=== PATIENT | male | born 1985 | race Caucasian/White ===

== ENCOUNTER 2020-02-28 15:27 | Emergency (ER) | payer OTHER ==
[2020-02-28 15:47] VITALS: BP 125/80; PULSE 80
--- NOTE | 2020-02-28 16:44 | EDM.PDOC ---
ED HPI GENERAL MEDICAL PROBLEM - General Chief Complaint: Lower Extremity Injury/Pain Stated Complaint: TWISTED LEFT ANKLE Time Seen by Provider: 02/28/20 15:34 Source of Information: Reports: Patient History Limitations: Reports: No Limitations - History of Present Illness INITIAL COMMENTS - FREE TEXT/NARRATIVE: Patient is a 35-year-old male who presents to the emergency department with complaints of left posterior ankle pain. States he was playing softball was running backwards to catch the ball he felt a strong pop in his ankle and has not been able to bear weight on the extremity since that time. Pain is localized to the posterior aspect of the ankle. He does have some cramping in his calf as well. He denies any previous injuries to this extremity. - Related Data Allergies Allergy/AdvReac Type Severity Reaction Status Date / Time No Known Allergies Allergy Verified 02/28/20 15:44 Home Meds: Home Meds . [No Known Home Meds] 07/02/15 [History] Past Medical History - Past Health History Medical/Surgical History: Denies Medical/Surgical History - Past Surgical History GI Surgical History: Reports: Hernia, Abdominal, Hernia, Inguinal Social & Family History - Family History Family Medical History: Noncontributory - Tobacco Use Smoking Status *Q: Never Smoker - Living Situation & Occupation Living situation: Reports: Occupation: Employed Review of Systems - Review of Systems Review Of Systems: Comprehensive ROS is negative, except as noted in HPI. ED EXAM, GENERAL - Physical Exam Exam: See Below Exam Limited By: No Limitations General Appearance: Alert, WD/WN, No Apparent Distress Respiratory/Chest: No Respiratory Distress, Lungs Clear, Normal Breath Sounds, No Accessory Muscle Use, Chest Non-Tender Cardiovascular: Normal Peripheral Pulses, Regular Rate, Rhythm, No Edema, No Gallop, No JVD, No Murmur, No Rub Course - Vital Signs Last Recorded V/S: Last Vital Signs Temp 97.1 F 02/28/20 15:44 Pulse 80 02/28/20 15:44 Resp 16 02/28/20 15:44 BP 125/80 02/28/20 15:44 Pulse Ox 96 02/28/20 15:44 - Orders/Labs/Meds Orders: Active Orders 24 hr Category Date Time Status Ankle Min 3V Lt [CR] Stat Exams 02/28/20 15:53 Taken Tibia Fibula Lt [CR] Stat Exams 02/28/20 15:53 Taken DME for Discharge [COMM] Routine Oth 02/28/20 18:12 Ordered - Re-Assessments/Exams Free Text/Narrative Re-Assessment/Exam: X-rays of the left ankle and tib-fib are negative for any acute fractures. On exam, the Achilles tendon is nonpalpable on the left side. This corresponds with the area of the patient's tenderness. Called and spoke with the technical agronomist, Miguelito. He will come and do an ultrasound of the Achilles tendon to look for tears. 02/28/20 18:09 Ultrasound of the left lower extremity were suspicious for a partial tear within the left Achilles tendon. Radiologist recommends a nonemergent MRI to confirm this. Patient has been placed in a custom Ortho-Glass short leg splint. He will be provided crutches. Recommend that he follow-up with Dr. Alcala next week. Discharge instructions as documented. Departure - Departure Time of Disposition: 18:10 Disposition: Home, Self-Care 01 Condition: Good Clinical Impression: Rupture of Achilles tendon - Discharge Information *PRESCRIPTION DRUG MONITORING PROGRAM REVIEWED*: No *COPY OF PRESCRIPTION DRUG MONITORING REPORT IN PATIENT REILLY: No Instructions: Achilles Tendon Tear, Phase I Rehab-SportsMed Referrals: PCP,None [Primary Care Provider] - Herb Alcala MD [Physician] - Forms: ED Department Discharge Additional Instructions: You were seen in the emergency department today for a left ankle injury that occurred while playing softball. X-rays were done and found to be normal. Your exam was suspicious for a torn Achilles tendon. Ultrasound was completed which did show findings consistent with a possible partial tear of the left Achilles tendon. You have been placed in a splint and should be nonweightbearing to that extremity. This should remain clean dry and intact until seen by orthopedics. Recommend that you call Sunday morning to schedule an appointment with Dr. Alcala. The number to schedule is listed below. Recommend that you ice and elevate the extremity when at rest. You may use [id number] Tylenol or ibuprofen as needed for pain. Return to the ER as needed. Sepsis Event Note (ED) - Evaluation Sepsis Screening Result: No Definite Risk - Focused Exam Vital Signs: Vital Signs Temp Pulse Resp BP Pulse Ox 02/28/20 15:44 97.1 F 80 16 125/80 96 - My Orders Last 24 Hours: My Active Orders 02/28/20 15:53 Ankle Min 3V Lt [CR] Stat Tibia Fibula Lt [CR] Stat 02/28/20 18:12 DME for Discharge [COMM] Routine - Assessment/Plan Last 24 Hours: My Active Orders 02/28/20 15:53 Ankle Min 3V Lt [CR] Stat Tibia Fibula Lt [CR] Stat 02/28/20 18:12 DME for Discharge [COMM] Routine
--- NOTE | 2020-02-28 17:44 | US ---
Achilles tendon ultrasound: Multiple real-time images were obtained of the Achilles tendon. There is a focal hematoma appearing to be present within the Achilles tendon on the left side. This most likely represents a partial tear as tendon ends do not appear to be retracted. Impression: 1. Findings suspicious for partial tear within the left Achilles tendon, recommend MRI to further characterize. This MRI can be done non-emergently. Diagnostic code #3 This report was dictated in MDT
--- NOTE | 2020-03-01 08:40 | CR ---
Left tibia and fibula: AP and lateral views left tibia and fibula were obtained. Comparison: No previous study is available. Questionably depressed lateral tibial plateau is suggested. Difficult to exclude a fracture if patient is symptomatic to this area. No additiona abnormality is seen on left tibia and fibula study. Impression: 1. Difficult to exclude fracture within the lateral tibial plateau. Please correlate if patient is symptomatic to this area. If no symptoms are present, finding is most likely projectional. 2. Left tibia and fibula study are otherwise unremarkable. Diagnostic code #3 This report was dictated in MDT
--- NOTE | 2020-03-01 09:52 | CR ---
Left ankle: 3 views of the left ankle were obtained. Comparison: No prior ankle study is available. Ankle mortise is symmetric. Small plantar spur is noted. No acute fracture, dislocation or other bony abnormality is identified. Impression: 1. Small plantar spur. 2. Nothing acute is identified on left ankle exam. Diagnostic code #2 This report was dictated in MDT
== END 2020-02-28 18:43 | disposition home or self-care (01) ==
LOC: JD.ED 15:27
DX: S86.012A Strain of left Achilles tendon, initial encounter (principal); X50.1XXA Overexertion from prolonged static or awkward postures, initial encounter; Y93.64 Activity, baseball
CPT/HCPCS: 29515; 73590-26-LT; 73590-LT; 73610-26-LT; 73610-LT; 76882; 76882-26; 99282; 99284-25

== ENCOUNTER 2020-03-11 06:56 | Day surgery (SDC) | payer OTHER ==
[~2020-03-11 06:56] MED LIST: Lactated Ringers 1,000 ML IV SCH; Lidocaine 1%/Sod Bicarbonate in NS 8.4% 1 ML Syringe IDERM PRN; Sodium Chloride 0.9% 10 ML Syringe FLUSH PRN
--- NOTE | 2020-03-11 07:35 | PCM.PREANE ---
Preanesthetic Assessment - Procedure Proposed Procedure: Left achilles tendon repair - Anesthesia/Transfusion/Family Hx Anesthesia History: Prior Anesthesia Reaction (nausea) Family History of Anesthesia Reaction: No Transfusion History: No Prior Transfusion(s) - Review of Systems General: No Symptoms Pulmonary: No Symptoms Cardiovascular: No Symptoms Gastrointestinal: No Symptoms Neurological: Gait Disturbance Other: Reports: None - Physical Assessment NPO Status Date: 03/10/20 NPO Status Time: 00:00 Vital Signs: Last Vital Signs Temp 36.1 C 03/11/20 07:15 Pulse 70 03/11/20 07:15 Resp 16 03/11/20 07:15 BP 125/87 03/11/20 07:15 Pulse Ox 97 03/11/20 07:15 Height: 1.88 m Weight: 88.904 kg ASA Class: 2 Mental Status: Alert & Oriented x3 Airway Class: Mallampati = 1 Dentition: Reports: Normal Dentition Thyro-Mental Finger Breadths: 3 Mouth Opening Finger Breadths: 3 ROM/Head Extension: Full Lungs: Clear to Auscultation, Normal Respiratory Effort Cardiovascular: Regular Rate, Regular Rhythm - Lab Values: Laboratory Last Values COVID-19 PCR Not detected (NOT DETECT) 03/08/20 12:30 - Allergies Allergies/Adverse Reactions: Allergies Allergy/AdvReac Type Severity Reaction Status Date / Time No Known Allergies Allergy Verified 03/11/20 07:25 - Blood Blood Available: No Product(s) Available: None - Anesthesia Plan Pre-Op Medication Ordered: None - Acknowledgements Anesthesia Type Planned: General Anesthesia, Regional Block (politeal block for post-op pain control) Pt an Appropriate Candidate for the Planned Anesthesia: Yes Alternatives and Risks of Anesthesia Discussed w Pt/Guardian: Yes Pt/Guardian Understands and Agrees with Anesthesia Plan: Yes PreAnesthesia Questionnaire - Past Health History Medical/Surgical History: Denies Medical/Surgical History - Past Surgical History GI Surgical History: Reports: Hernia, Abdominal, Hernia, Inguinal - SUBSTANCE USE Smoking Status *Q: Former Smoker Tobacco Use Within Last Twelve Months: No Second Hand Smoke Exposure: No Days Per Week of Alcohol Use: 2 Number of Drinks Per Day: 1 Total Drinks Per Week: 2 Recreational Drug Use History: No - HOME MEDS Home Medications: Home Meds Acetaminophen/HYDROcodone [Cabazon 325-5 MG] 1 - 2 tab PO Q6H PRN #30 tablet 03/11/20 [Rx] Aspirin 325 mg PO BID #84 tab 03/11/20 [Rx] Cyclobenzaprine [Flexeril] 10 mg PO Q12H PRN #20 tab 03/11/20 [Rx] - CURRENT (IN HOUSE) MEDS Current Meds: Current Medications Lactated Ringer's (Ringers, Lactated) 1,000 mls @ 125 mls/hr IV ASDIRECTED DAYANARA Stop: 03/11/20 23:00 Lidocaine/Sodium Bicarbonate (Buffered Lidocaine 1% In Ns 8.4%) 0.25 ml IDERM ONETIME PRN PRN Reason: Prior to IV Start Stop: 03/11/20 18:00 Sodium Chloride (Saline Flush) 10 ml FLUSH ASDIRECTED PRN PRN Reason: Keep Vein Open Stop: 03/11/20 18:00
[2020-03-11] MEDS ORDERED: Bupivacaine 0.25% 10 ML SDV ONE ×2 (07:57)
[2020-03-11] MEDS ORDERED: Vancomycin 1 GM, Vancomycin 500 MG in Sodium Chloride 0.9% 500 ML IV ONE (08:00)
[2020-03-11] MEDS ORDERED: Ropivacaine 0.5% 5 MG/ML 30 ML SDV ONE (08:00)
[2020-03-11] MEDS ORDERED: Propofol 200 MG/20 ML SDV ONE (08:02)
[2020-03-11] MEDS ORDERED: Lidocaine 1% 4 ML ONE (08:03)
[2020-03-11] MEDS ORDERED: Midazolam 1 MG/ML 2 ML SDV ONE (08:03)
[2020-03-11] MEDS ORDERED: fentaNYL 100 MCG/2 ML SDV ONE (08:03)
[2020-03-11] MEDS ORDERED: Dexamethasone 4 MG/ML 5 ML MDV ONE (08:51)
[2020-03-11] MEDS ORDERED: ceFAZolin 1 GM Vial ONE (08:51)
--- NOTE | 2020-03-11 09:37 | PCM.PRNOTE ---
- Free Text/Narrative Note: Postoperative pain control requested by surgeon. Pre-op Dx: Left Achilles tendon tear Surgery : Left Achilles tendon repair Anesthesia Procedure: Left Popliteal block with U/S guidance Requesting physician: Dr. Herb Clifford Risks and benefits discussed with the patient preoperatively including inf ection, bleeding, incomplete or failed block, possible nerve damage, local anesthetic toxicity. Chart reviewed, VS stable. Permit signed. Patient in PACU holding area, stable , alert and awake, positions himself prone with pillow support. Time out performed at 08:24. Oxygen 3L via NC. Left lateral thigh area above the knee was prepped with Chloraprep x 1 and allowed to dry. Midazolam IV 2 mg given. Under aseptic technique, the Left common peroneal and Left tibial nerves were identified under ultrasound prior to needle insertion. Local infiltration with 1% Lidocaine. 4" Stimuplex needle #22 G was inserted under US guidance. Neuromuscular response of plantar flexion was elicited at 0.7 mA. Under direct visualization of needle tip the injection of 0.5% Ropivacaine + 1:200k of epinephrine with 6 mg of Dexamethasone , total of 30 mls in divided doses, maintaining negative aspiration was completed without problems, observing circumferential local anesthetic spread around the nerves. No local anesthetic toxicity was noted. Patient is awake, stable and tolerated the procedure well. Time: 08:24 - 08:37 Please see attached U/S images
[2020-03-11] MEDS ORDERED: HYDROmorphone 0.5 MG/0.5 ML Syringe IVPUSH PRN (09:41)
[2020-03-11] MEDS ORDERED: fentaNYL 100 MCG/2 ML SDV IVPUSH PRN (09:41)
[2020-03-11] MEDS ORDERED: Ondansetron 4 MG/2 ML SDV ONE (10:07)
--- NOTE | 2020-03-11 10:18 | PCM48HPAN ---
Post Anesthesia Note - EVALUATION WITHIN 48HRS OF ANESTHETIC Vital Signs in Normal Range: Yes Patient Participated in Evaluation: Yes Respiratory Function Stable: Yes Airway Patent: Yes Cardiovascular Function Stable: Yes Hydration Status Stable: Yes Pain Control Satisfactory: Yes Nausea and Vomiting Control Satisfactory: Yes Mental Status Recovered: Yes Vital Signs: Last Vital Signs Temp 97.8 F 03/11/20 10:03 Pulse 75 03/11/20 10:03 Resp 16 03/11/20 10:03 BP 120/68 03/11/20 10:03 Pulse Ox 99 03/11/20 10:03
[2020-03-11 10:33] VITALS: PULSE 64
[2020-03-11 11:28] VITALS: BP 119/82
--- NOTE | 2020-03-18 09:52 | PCM.OPNOTE ---
- General Post-Op/Procedure Note Date of Surgery/Procedure: 03/11/20 Operative Procedure(s): left achilles tendon repair Pre Op Diagnosis: left achilles tendon rupture Post-Op Diagnosis: Same Anesthesia Technique: MAC, Regional Block Primary Surgeon: Herb Alcala Anesthesia Provider: Caleb Nunez Rug Sizer: Jocelyne Saleh EBL in mLs: 10 Complications: None Condition: Good
--- NOTE | 2020-03-18 11:37 | OR ---
DATE OF OPERATION: 03/11/2020 SURGEON: Herb Alcala MD OPERATION PERFORMED: Left Achilles tendon repair. PREOPERATIVE DIAGNOSIS: Left Achilles tendon rupture. POSTOPERATIVE DIAGNOSIS: Left Achilles tendon rupture. ANESTHESIA: MAC with regional block. ANESTHESIA PROVIDER: Tish Castellano. LOAN REVIEW ANALYST: Jocelyne Saleh PA-C. ESTIMATED BLOOD LOSS: 10 mL. COMPLICATIONS: None. CONDITION: Stable. DESCRIPTION OF PROCEDURE: The patient was identified in the preop holding area. Proper site was marked and identified by the surgeon. The patient was taken back to the operating theater. After adequate anesthesia, the patient was placed in a prone position. Axillary chest rolls were placed. The patient's bony prominences well padded. Airway was secured. Neck was in neutral position. At this time, the left lower extremity had a nonsterile tourniquet applied and then sterilely prepped and draped in the usual sterile fashion. OR time was performed. Patient received 2 g IV Ancef. Left lower extremity was then exsanguinated. Tourniquet was insufflated to 250 mmHg. A standard posterior incision was made. This was taken down through the paratenon. The patient was noted to have a severely ruptured midportion of the Achilles with significant retraction and significant fraying. I did at this time clean up all the frayed ends to the best tissue that I could, but it again showed significant fraying and poor tissue quality. At this time, a modified Krackow stitch was used in both proximal and distal fragments so that there were suture ends on either the medial and lateral side to tie. The patient's foot was placed in plantar flexion and both ends of the medial and lateral sutures were then tied together with a #5 FiberWire. It had good apposition of the tendon, and at this time, a #2 FiberWire was then used for [id number] stitches around the repair to do an inner repair and had good tubularization of the tendon. 0 Vicryl was then used for oversewing of the knots to make sure they were buried. Adequate saline was then irrigated through the wound. 0 Vicryl was used for closure of the paratenon. 2-0 Vicryl was used subcutaneously, and Monocryl was used for closure of the skin. The patient tolerated the procedures well, was sent to the PACU in stable condition with a sterile soft dressing and a posterior slab splint. BHANU /[id number]
== END 2020-03-11 11:15 | disposition home or self-care (01) ==
LOC: JD.SDS 06:56
PROVIDERS: ATTEND Orthopaedic Surgery
DX: S86.012A Strain of left Achilles tendon, initial encounter (principal); Z87.891 Personal history of nicotine dependence; Z11.59 Encounter for screening for other viral diseases; X58.XXXA Exposure to other specified factors, initial encounter
CPT/HCPCS: 27650; 87635; J0690; J1100; J2001; J2250; J2405; J2704; J2795; J3370; J3490; J7040; J7120; 01472; 64450; J3010; U0002